=== PATIENT | male | born 1955 ===

== ENCOUNTER 2021-10-09 11:01 | Day surgery (SDC) | payer BC, MEDICARE ==
[2021-10-09] MEDS: Polymyxin B/Trimethoprim 10 ML Bottle EYELF SCH ×4 (11:15→13:19)
[2021-10-09] MEDS: Brimonidine 0.2% Ophth Soln 5 ML Bottle EYELF SCH ×4 (11:20→13:19)
[2021-10-09] MEDS: Phenylephrine 2.5% Ophth Soln 2 ML Bot EYELF SCH ×6 (11:25→13:07)
[2021-10-09] MEDS: Tropicamide 1% Ophth Soln 15 ML Bottle EYELF SCH ×4 (11:30→12:22)
[2021-10-09] MEDS: Tetracaine HCl/PF 0.5% 4 ML Bottle EYEBOTH SCH ×5 (12:40→13:07)
[2021-10-09] MEDS: Lidocaine 1% PF 2 ML SDV INJECT SCH ×2 (13:00→13:07)
[2021-10-09] MEDS: Pilocarpine 4% Ophth Soln 15 ML Bot EYELF SCH ×2 (13:07→13:19)
[2021-10-09] MEDS: Cefuroxime 10 MG/ML SYRINGE EYELF SCH ×2 (13:07→13:17)
== END 2021-10-09 13:31 | disposition home or self-care (01) ==
LOC: JD.SDS 11:01
PROVIDERS: ATTEND Ophthalmology
DX: H25.89 Other age-related cataract (principal); H25.811 Combined forms of age-related cataract, right eye; H35.3131 Nonexudative age-related macular degeneration, bilateral, early dry stage; H40.053 Ocular hypertension, bilateral; H16.103 Unspecified superficial keratitis, bilateral; H16.223 Keratoconjunctivitis sicca, not specified as Sjogren's, bilateral; H21.81 Floppy iris syndrome; H35.363 Drusen (degenerative) of macula, bilateral; Z87.891 Personal history of nicotine dependence
CPT/HCPCS: 66984; J0697; C1780

== ENCOUNTER 2021-11-13 13:17 | Day surgery (SDC) | payer BC ==
[2021-11-13] MEDS: Polymyxin B/Trimethoprim 10 ML Bottle EYERT SCH ×4 (14:11→15:48)
[2021-11-13] MEDS: Brimonidine 0.2% Ophth Soln 5 ML Bottle EYERT SCH ×4 (14:16→15:48)
[2021-11-13] MEDS: Phenylephrine 2.5% Ophth Soln 2 ML Bot EYERT SCH ×6 (14:21→15:31)
[2021-11-13] MEDS: Tropicamide 1% Ophth Soln 15 ML Bottle EYERT SCH ×4 (14:28→15:09)
[2021-11-13] MEDS: Tetracaine HCl/PF 0.5% 4 ML Bottle EYEBOTH SCH ×5 (15:01→15:34)
[2021-11-13] MEDS: Pilocarpine 4% Ophth Soln 15 ML Bot EYERT SCH ×2 (15:02→15:48)
[2021-11-13] MEDS: Cefuroxime 10 MG/ML SYRINGE EYERT SCH ×2 (15:02→15:45)
[2021-11-13] MEDS: Lidocaine 1% PF 2 ML SDV INJECT SCH ×2 (15:02→15:34)
== END 2021-11-13 15:54 | disposition home or self-care (01) ==
LOC: JD.SDS 13:17
PROVIDERS: ATTEND Ophthalmology
DX: H25.811 Combined forms of age-related cataract, right eye (principal); Z87.891 Personal history of nicotine dependence; Z79.899 Other long term (current) drug therapy
CPT/HCPCS: 66984; J0697; C1780